=== PATIENT | female | born 1995 | race Two or more races ===

== ENCOUNTER 2020-11-05 06:00 | Emergency (ER) | payer OTHER ==
[~2020-11-05] VITALS: Ht 167.6 cm; Wt 77.1 kg
[2020-11-05] MEDS ORDERED: ZITHROMAX500 MG PO (12:09)
== END 2020-11-05 12:00 | disposition home or self-care (01) ==
LOC: ER 06:00
DX: R50.9 Fever, unspecified (principal); B96.0 Mycoplasma pneumoniae [M. pneumoniae] as the cause of diseases classified elsewhere

== ENCOUNTER 2021-07-16 07:49 | Emergency (ER) | payer OTHER ==
[~2021-07-16] VITALS: Ht 167.6 cm; Wt 90.7 kg
[~2021-07-16 07:49] MED LIST: ZITHROMAX500 MG PO
[2021-07-16] MEDS ORDERED: OB COMPLETE ON1 EACH (07:56)
== END 2021-07-16 13:06 | disposition home or self-care (01) ==
LOC: ER 07:49
DX: O26.851 Spotting complicating pregnancy, first trimester (principal); Z3A.01 Less than 8 weeks gestation of pregnancy

== ENCOUNTER 2021-08-25 11:21 | Outpatient (CLI) | payer OTHER ==
[~2021-08-25 11:21] MED LIST changes: +OB COMPLETE ON1 EACH
== END 2021-08-25 13:01 | disposition home or self-care (01) ==
LOC: PRENATAL 11:21
PROVIDERS: ATTEND Obstetrics & Gynecology Maternal & Fetal Medicine
DX: O99.211 Obesity complicating pregnancy, first trimester (principal); O36.80X1 Pregnancy with inconclusive fetal viability, fetus 1; Z36.89 Encounter for other specified antenatal screening; Z3A.13 13 weeks gestation of pregnancy

== ENCOUNTER 2021-10-13 12:53 | Outpatient (CLI) | payer OTHER | END 2021-10-13 14:40 | disposition home or self-care (01) | LOC: PRENATAL 12:53 | PROVIDERS: ATTEND Obstetrics & Gynecology Maternal & Fetal Medicine | DX: O35.0XX1 Maternal care for (suspected) central nervous system malformation in fetus, fetus 1 (principal); O35.3XX1 Maternal care for (suspected) damage to fetus from viral disease in mother, fetus 1; O98.512 Other viral diseases complicating pregnancy, second trimester; O26.872 Cervical shortening, second trimester; O99.212 Obesity complicating pregnancy, second trimester; Z36.89 Encounter for other specified antenatal screening; Z3A.21 21 weeks gestation of pregnancy ==

== ENCOUNTER 2021-10-13 15:43 | Inpatient (IN) | payer OTHER ==
[~2021-10-13] VITALS: Ht 167.6 cm; Wt 56.0 kg
== END 2021-10-14 19:21 | disposition home or self-care (01) | DRG 806 ==
LOC: LDR 15:43 → SURG 15:43 → LDR 19:54 → SURG 10-14 00:54
PROVIDERS: ADMIT Obstetrics & Gynecology; ATTEND Obstetrics & Gynecology
PROC: 3E0P7VZ Introduction of Hormone into Female Reproductive, Via Natural or Artificial Opening (ICD-10-PCS; 2021-10-13)
PROC: 4A1HXFZ Monitoring of Products of Conception, Cardiac Rhythm, External Approach (ICD-10-PCS; 2021-10-13)
PROC: 10E0XZZ Delivery of Products of Conception, External Approach (ICD-10-PCS; principal; 2021-10-13 17:00)
DX: O34.32 Maternal care for cervical incompetence, second trimester (principal); O36.4XX0 Maternal care for intrauterine death, not applicable or unspecified; Z37.1 Single stillbirth; Z53.09 Procedure and treatment not carried out because of other contraindication; O42.012 Preterm premature rupture of membranes, onset of labor within 24 hours of rupture, second trimester; Z3A.20 20 weeks gestation of pregnancy

== ENCOUNTER 2023-12-07 09:15 | Outpatient (CLI) | payer OTHER | END 2023-12-07 09:16 | disposition home or self-care (01) | LOC: PRENATAL 09:15 | PROVIDERS: ATTEND Obstetrics & Gynecology Maternal & Fetal Medicine | DX: O36.80X0 Pregnancy with inconclusive fetal viability, not applicable or unspecified (principal); Z36.82 Encounter for antenatal screening for nuchal translucency; Z36.9 Encounter for antenatal screening, unspecified; O34.30 Maternal care for cervical incompetence, unspecified trimester; Z3A.11 11 weeks gestation of pregnancy ==

== ENCOUNTER 2024-01-01 09:34 | Day surgery (SDC) | payer OTHER ==
[2023-12-24 10:41] LABS: HEMOGLOBIN 12.5 g/dL (12.0-15.00); MEAN CELL VOLUME 87.3 fL (80.00-100.00); MEAN CORPUSCULAR HEMOGLOBIN 29.5 pg (27.00-32.0); MEAN CORPUSCULAR HGB CONC 33.7 g/dl (32.0-36.0); PLATELET COUNT 316 K/uL (150-450); RED BLOOD COUNT 4.24 M/uL (4.00-6.00); RED CELL DISTRIBUTION WIDTH 14.3 % (11.5-14.5)
[2023-12-24 11:34] LABS: INR 0.98; PARTIAL THROMBOPLASTIN TIME 26.8 SECONDS (22.0-34.0); PROTHROMBIN TIME 10.3 SECONDS (9.0-11.5)
[2024-01-01] MEDS ORDERED: METRONIDAZOLE/SODIUM CHLORIDE 500 MG/100 ML PIGGYBACK IV ONE (14:28)
[2024-01-01] MEDS ORDERED: POVIDONE-IODINE 118 ML BOTT TOP ONE (14:39)
[2024-01-01] MEDS ORDERED: POVIDONE-IODINE 118 ML BOTT TOP SCH (15:30)
[2024-01-01] MEDS ORDERED: METRONIDAZOLE/SODIUM CHLORIDE 500 MG/100 ML PIGGYBACK IV SCH (15:30)
== END 2024-01-01 20:10 | disposition home or self-care (01) ==
LOC: CIR.AMB 09:34
PROVIDERS: ATTEND Obstetrics & Gynecology Maternal & Fetal Medicine
DX: O34.32 Maternal care for cervical incompetence, second trimester (principal); Z3A.15 15 weeks gestation of pregnancy

== ENCOUNTER 2024-04-02 13:03 | Outpatient (CLI) | payer OTHER | END 2024-04-02 13:04 | disposition home or self-care (01) | LOC: PRENATAL 13:03 | PROVIDERS: ATTEND Obstetrics & Gynecology Maternal & Fetal Medicine | DX: O26.843 Uterine size-date discrepancy, third trimester (principal); O34.33 Maternal care for cervical incompetence, third trimester; Z3A.28 28 weeks gestation of pregnancy ==

== ENCOUNTER 2024-05-16 12:13 | Inpatient (IN) | payer OTHER ==
[~2024-05-16] VITALS: Ht 152.4 cm; Wt 101.2 kg
[2024-05-16] MEDS ORDERED: BETAMETHASONE ACETATE,SOD PHOS 30 MG/5 ML ML ONE (13:11)
[2024-05-16] MEDS ORDERED: PROGESTERONE200 MG (13:22)
[2024-05-16] MEDS ORDERED: RINGERS SOLUTION,LACTATED 1,000 ML IV SCH (13:30)
[2024-05-16] MEDS ORDERED: BETAMETHASONE ACETATE,SOD PHOS 30 MG/5 ML ML IM SCH (13:30)
[2024-05-16] MEDS ORDERED: CEFAZOLIN SODIUM 1,000 MG VIAL IV SCH (13:30)
[2024-05-16 13:33] LABS: URINE APPEARANCE Clear; URINE BILIRRUBIN Negative (NEGATIVE); URINE BLOOD Small; URINE COLOR Yellow; URINE GLUCOSE Negative (NEGATIVE); URINE LEUKOCYTE Negative; URINE NITRATE Negative; URINE PROTEIN Negative (NEGATIVE)
[2024-05-16 13:36] LABS: HEMOGLOBIN 11.2 g/dL (12.0-15.00); MEAN CELL VOLUME 86.6 fL (80.00-100.00); MEAN CORPUSCULAR HEMOGLOBIN 29.4 pg (27.00-32.0); PLATELET COUNT 279 K/uL (150-450); RED BLOOD COUNT 3.81 M/uL (4.00-6.00); RED CELL DISTRIBUTION WIDTH 13.9 % (11.5-14.5); URINE BACTERIA 120.9 uL (0.0-1933); URINE EPITHELIAL CELLS 8.3 uL (0.0-38.8); URINE RBC 12.2 uL (0.0-20.8); URINE WBC 3.5 uL (0.0-23.2)
[2024-05-16 13:46] LABS: URINE CAST 0.91 uL (0.0-1.40); URINE KETONE 80 (NEGATIVE)
[2024-05-16 14:20] LABS: ALBUMIN 3.1 gm/dL (3.4-5.0); BILIRUBIN TOTAL 0.5 mg/dL (0.3-1.2); CALCIUM 9.2 mg/dL (8.5-10.1); CREATININE SERUM 0.43 mg/dL (0.55-1.02); GFR 172.41; GLOBULINA 3.9 G/DL (2.4-3.5)
[2024-05-16 14:25] LABS: INR 0.99; PARTIAL THROMBOPLASTIN TIME 25.4 SECONDS (22.0-34.0); PROTHROMBIN TIME 10.8 SECONDS (9.0-11.5)
[2024-05-16] MEDS ORDERED: ERYTHROMYCIN BASE 1 GM TUBE OP ONE (15:20)
[2024-05-16] MEDS ORDERED: OXYTOCIN 10 UNITS/ML VIAL ONE ×2 (15:20→20:31)
[2024-05-16] MEDS ORDERED: MEPERIDINE HCL/PF 50 MG/ML VIAL IV PRN (17:00)
[2024-05-16] MEDS ORDERED: PROMETHAZINE HCL 25 MG/ML AMPUL IV PRN (17:00)
[2024-05-16] MEDS ORDERED: OXYTOCIN 1,000 ML IV SCH (17:00)
[2024-05-16] MEDS ORDERED: KETOROLAC TROMETHAMINE 30 MG VIAL IV PRN (17:00)
[2024-05-16 21:02] LABS: MEAN CELL VOLUME 87.8 fL (80.00-100.00); MEAN CORPUSCULAR HEMOGLOBIN 29.3 pg (27.00-32.0); MEAN CORPUSCULAR HGB CONC 33.3 g/dl (32.0-36.0); PLATELET COUNT 282 K/uL (150-450); RED CELL DISTRIBUTION WIDTH 13.5 % (11.5-14.5)
[2024-05-17] MEDS ORDERED: IBUprofen 800 MG TABLET PO PRN (07:00)
[2024-05-17] MEDS ORDERED: OxyCODONE HCL/APAP UD (PERCOCET) PO PRN (07:00)
[2024-05-17] MEDS ORDERED: SIMETHICONE 125 MG CAPSULE PO SCH (09:00)
[2024-05-17] MEDS ORDERED: DOCUSATE SODIUM 100MG CAP PO SCH (09:00)
[2024-05-17] MEDS ORDERED: BETAMETHASONE ACETATE,SOD PHOS 30 MG/5 ML ML IM NR (09:00)
[2024-05-19] MEDS ORDERED: SURFAK240 M1 PO (09:07)
[2024-05-19] MEDS ORDERED: IBU800 MG PO (09:07)
== END 2024-05-19 17:53 | disposition home or self-care (01) | DRG 786 ==
LOC: O/R 12:13 → LDR 12:13 → OB/GYN 12:13 → LDR 12:17 → O/R 16:25 → OB/GYN 18:07
PROVIDERS: ADMIT Student in an Organized Health Care Education/Training Program; ATTEND Student in an Organized Health Care Education/Training Program
PROC: 4A1HXCZ Monitoring of Products of Conception, Cardiac Rate, External Approach (ICD-10-PCS; 2024-05-16)
PROC: 10D00Z1 Extraction of Products of Conception, Low, Open Approach (ICD-10-PCS; principal; 2024-05-16 17:00)
DX: O32.8XX0 Maternal care for other malpresentation of fetus, not applicable or unspecified (principal); O34.33 Maternal care for cervical incompetence, third trimester; O60.14X0 Preterm labor third trimester with preterm delivery third trimester, not applicable or unspecified; Z3A.34 34 weeks gestation of pregnancy; Z37.0 Single live birth; Z20.822 Contact with and (suspected) exposure to COVID-19